=== PATIENT | female | born 1945 | race Caucasian/White ===

== ENCOUNTER → 2017-04-19 | Outpatient (CLI) | payer MEDICARE, OTHER ==
[~2017-04-19] MED LIST: ALLEGRA D 12 HO1 TER PO; BACTRIM DS 8001 TAB PO; BACTROBAN 22GM22 GM TP; CIPRO 500MG TA500 MG PO; CLINDAMYCIN300 MG PO; LORTAB 5/500 501 TAB PO; PERCOCET 325 MG1 TA2 PO; PREMARIN 0.60.625 M1 PO; PREMARIN PO
== END ==
LOC: MC.RAD 13:57
DX: Z12.31 Encounter for screening mammogram for malignant neoplasm of breast (principal)

== ENCOUNTER → 2018-12-02 | Outpatient (CLI) | payer MEDICARE, OTHER | LOC: MC.RAD 10-21 13:40 | DX: Z12.31 Encounter for screening mammogram for malignant neoplasm of breast (principal) ==

== ENCOUNTER → 2019-06-09 | Outpatient (CLI) | payer MEDICARE, OTHER | LOC: ZCOL.LAB 15:19 | DX: Z01.812 Encounter for preprocedural laboratory examination (principal); Z86.14 Personal history of Methicillin resistant Staphylococcus aureus infection ==

== ENCOUNTER → 2019-06-22 | Outpatient (CLI) | payer MEDICARE, OTHER | LOC: COL.RAD 13:00 | DX: M25.512 Pain in left shoulder (principal) | CPT/HCPCS: J3301; Q9967 ==

== ENCOUNTER 2022-03-27 21:01 | Emergency (ER) | payer MEDICARE, OTHER ==
[~2022-03-27] VITALS: Ht 162.6 cm; Wt 77.3 kg
[2022-03-27 21:15] VITALS: TEMP 97.8
[2022-03-27 22:56] VITALS: BP 140/89; PULSE 63
== END 2022-03-27 22:56 | disposition home or self-care (01) ==
LOC: COL.ER 21:01
DX: S06.0X0A Concussion without loss of consciousness, initial encounter (principal); S01.01XA Laceration without foreign body of scalp, initial encounter; W01.198A Fall on same level from slipping, tripping and stumbling with subsequent striking against other object, initial encounter

== ENCOUNTER → 2022-04-05 | Outpatient (CLI) | payer MEDICARE, OTHER ==
[2022-04-05 14:36] VITALS: BP 163/91; PULSE 68; TEMP 99.1
== END ==
LOC: COL.ER 14:19
DX: Z48.02 Encounter for removal of sutures (principal)

== ENCOUNTER 2023-02-12 16:09 | Inpatient (IN) | payer MEDICARE, OTHER ==
[~2023-02-12] VITALS: Ht 162.6 cm; Wt 83.4 kg
[2023-02-12 16:49] LABS: BASO # 0.1 K/mm3 (0.0-0.2); BASO % 1.5 % (0.0-2.0); EOS # 0.2 K/mm3 (0.0-0.7); EOS % 2.2 % (0.0-4.0); GRAN # 4.3 K/mm3 (1.4-6.5); GRAN % 64.5 % (42.2-75.2); HEMATOCRIT 48.1 % (37.0-47.0); HEMOGLOBIN 16.4 g/dl (12.5-16.0); LYMPH # 1.4 K/mm3 (1.2-3.4); LYMPH % 21.4 % (20.0-51.0); MEAN CELL VOLUME 91 fl (80.0-100.0); MEAN CORPUSCULAR HEMOGLOBIN 31 pg (27-31); MEAN CORPUSCULAR HGB CONC 34 g/dl (33.0-37.0); MEAN PLATELET VOLUME 8.8 fl (7.4-10.4); MONO # 0.7 K/mm3 (0.1-0.6); MONO % 10.1 % (1.7-9.3); PLATELET COUNT 366 K/mm3 (130-400); RED BLOOD COUNT 5.28 M/mm3 (4.10-5.30); REDCELL DISTRIBUTION WIDTH-CV 13.3 % (11.5-14.5)
[2023-02-12 16:51] LABS: PROTHROMBIN TIME 11.8 SECONDS (9.7-12.8)
[2023-02-12 16:54] LABS: PARTIAL THROMBOPLASTIN TIME 34.2 SECONDS (26.0-37.0)
[2023-02-12 17:03] LABS: ALANINE AMINOTRANSFERASE 44 U/L (0-55); ALBUMIN 4.5 gm/dL (3.4-4.8); ALKALINE PHOSPHATASE 51 U/L (40-150); ANION GAP 13 mmol/L (7-16); AST,SGOT 62 U/L (5-34); BILIRUBIN,TOTAL 0.8 mg/dL (0.2-1.2); BLOOD UREA NITROGEN 30 mg/dL (10-20); CALCIUM 10.8 mg/dL (8.4-10.2); CARBON DIOXIDE 21 mmol/L (23-31); CHLORIDE 101 mmol/L (98-107); CREATININE, serum 1.36 mg/dL (0.57-1.11); GLUCOSE 96 mg/dL (70-99); POTASSIUM 4.2 mmol/L (3.5-4.5); SODIUM 135 mmol/L (136-145)
[2023-02-12 17:09] LABS: TROPONIN-I < 0.010 ng/mL (0.00-0.033)
[2023-02-12] MEDS ORDERED: NORVASC 5MG5 MG/TAB PO (18:56)
[2023-02-12] MEDS ORDERED: ASPIRIN E.C. 8181 MG PO (18:56)
[2023-02-12] MEDS ORDERED: SINGULAIR 110 MG/TAB PO (18:57)
[2023-02-12] MEDS ORDERED: CALCIUM 600-D 61 TAB PO (18:58)
[2023-02-12] MEDS ORDERED: ZYRTEC 10MG10 MG PO (18:59)
[2023-02-12] MEDS ORDERED: MAG-OX 400400 MG/TAB PO (18:59)
[2023-02-12] MEDS ORDERED: TRICOR 48MG48 MG PO (19:00)
[2023-02-12] MEDS ORDERED: TOPROL XL 50MG50 MG PO (19:00)
[2023-02-12] MEDS ORDERED: PRINIVIL10 MG PO (19:00)
[2023-02-12] MEDS ORDERED: RHINOCORT0.032 MG/1 NS (19:01)
[2023-02-12] MEDS ORDERED: ALLEGRA 180MG180 MG PO (19:01)
[2023-02-12] MEDS ORDERED: TYLENOL 500MG500 MG PO (19:02)
[2023-02-12 19:58] LABS: MAGNESIUM 1.6 mg/dL (1.6-2.6)
[2023-02-12 20:20] LABS: TSH w REFLEX 3.943 uIU/mL (0.350-4.940)
[2023-02-12 20:23] VITALS: BP 134/90; PULSE 88; TEMP 97.9
--- NOTE | 2023-02-12 22:01 | NUR ---
THE PATIENT ARRIVED ALERT AND ORIENTED. THE PATIENT HAD HEPARIN AND CARDIZEM DRIPS GOING. THE PATIENT DID NOT APPEAR TO BE IN ANY DISTRESS. THE PATIENT WAS ORIENTED TO THE ROOM AND BED CONTROLS. CALL LIGHT WITHIN REACH. WILL MONITOR.
[2023-02-13] VITALS (10 sets, daily range): BP systolic 100–145; BP diastolic 54–82; PULSE 64–108; TEMP 97.4–98.2
--- NOTE | 2023-02-13 01:48 | NUR ---
0100 PTS HEART RATE OCCASIONALLY LESS THAN 60. THE PATIENT IS ON A CARDIZEM DRIP. THE RATE WAS DECREASED FROM 10 MG PER HOUR TO 5 MG PER HOUR. THE PTS HEART RATE WAS OCCASIONALLY LESS THAN 60 WITH READINGS SOMETIMES 57-59. THE PATIENT FELL ASLEEP AND HER HEART RATE WAS NOTED IN THE 51 RANGE. THE CARDIZEM DRIP WAS PLACED ON HOLD AT 0145 AND CRISSY GRESHAM NOTIFIED. AT 0153 THE PTS HEART RATE IS 62 WITH THE DRIP ON HOLD. WILL MONITOR.
--- NOTE | 2023-02-13 03:14 | NUR ---
THE PATIENT REMAINS IN A-FIB HR 72. VITAL SIGNS STABLE. CARDIZEM DRIP REMAINS ON HOLD AT THIS TIME. WILL MONITOR.
--- NOTE | 2023-02-13 04:42 | NUR ---
0440 THE PATIENT WAS PLACED BACK ON THE CARDIZEM DRIP AT 5 MG PER HOUR. HR 75-108 NOTED ON THE MONITOR AFIB/FLUTTER. WILL MONITOR.
--- NOTE | 2023-02-13 07:09 | NUR ---
0655 CARDIZEM DRIP PLACED ON HOLD AGAIN. HR 51-78 AND BP MARGINAL. REPORT GIVEN TO JOSEY [facility] TRANSFERRED.
[2023-02-13 09:49] LABS: BASO # 0.1 K/mm3 (0.0-0.2); BASO % 1.3 % (0.0-2.0); EOS # 0.2 K/mm3 (0.0-0.7); EOS % 2.9 % (0.0-4.0); GRAN # 3.9 K/mm3 (1.4-6.5); GRAN % 62.4 % (42.2-75.2); HEMATOCRIT 45.7 % (37.0-47.0); HEMOGLOBIN 15.5 g/dl (12.5-16.0); LYMPH # 1.4 K/mm3 (1.2-3.4); LYMPH % 21.7 % (20.0-51.0); MEAN CELL VOLUME 90 fl (80.0-100.0); MEAN CORPUSCULAR HEMOGLOBIN 31 pg (27-31); MEAN CORPUSCULAR HGB CONC 34 g/dl (33.0-37.0); MEAN PLATELET VOLUME 8.7 fl (7.4-10.4); MONO # 0.7 K/mm3 (0.1-0.6); MONO % 11.4 % (1.7-9.3); PLATELET COUNT 344 K/mm3 (130-400); RED BLOOD COUNT 5.06 M/mm3 (4.10-5.30); REDCELL DISTRIBUTION WIDTH-CV 13.4 % (11.5-14.5)
--- NOTE | 2023-02-13 10:00 | NUR ---
HepXa 0.83. Rate reduced per protocol.
[2023-02-13 10:08] LABS: CALCIUM 10.3 mg/dL (8.4-10.2); CREATININE, serum 1.2 mg/dL (0.57-1.11); POTASSIUM 4.4 mmol/L (3.5-4.5)
--- NOTE | 2023-02-13 10:51 | NUR ---
SW met with pt to complete intake. Pt confirms living in [facility] with spouse Gino Palmer listed as NOK and confirmed phone number as ([phone]). Pt reports DME as: cane for her back, shower chair, and rising toilet. Pt reports moving to [place] in a week and her grandson built a walk in shower with chair. Pt denies stairs at home. Pt reports being otherwise independent. Pt denies oxygen at home. Pt reports PCP as Virgie and primary pharmacy is and secondary is [facility]. Pt denies any challenges with retrieving and/or costs.
[2023-02-14 03:46] VITALS: BP 116/79; PULSE 99; TEMP 98.5
--- NOTE | 2023-02-14 03:58 | NUR ---
NURSING SHIFT ASSESSMENT COMPLETED. THE PATIENT DENIED PAIN OR NEEDS AT THIS TIME. HEPARIN DRIP CONTINUES PER ORDERS. CALL LIGHT AND PERSONAL BELONGINGS WITHIN REACH. WILL MONITOR.
[2023-02-14 07:05] LABS: CALCIUM 9.7 mg/dL (8.4-10.2); CREATININE, serum 1.06 mg/dL (0.57-1.11); POTASSIUM 4.1 mmol/L (3.5-4.5)
[2023-02-14 07:06] LABS: BASO # 0.1 K/mm3 (0.0-0.2); BASO % 1.3 % (0.0-2.0); EOS # 0.2 K/mm3 (0.0-0.7); EOS % 3.4 % (0.0-4.0); GRAN # 3.4 K/mm3 (1.4-6.5); GRAN % 60.1 % (42.2-75.2); HEMOGLOBIN 14.7 g/dl (12.5-16.0); LYMPH # 1.4 K/mm3 (1.2-3.4); LYMPH % 24.2 % (20.0-51.0); MEAN CELL VOLUME 92 fl (80.0-100.0); MEAN CORPUSCULAR HEMOGLOBIN 31 pg (27-31); MEAN CORPUSCULAR HGB CONC 34 g/dl (33.0-37.0); MEAN PLATELET VOLUME 9.2 fl (7.4-10.4); MONO # 0.6 K/mm3 (0.1-0.6); MONO % 10.8 % (1.7-9.3); PLATELET COUNT 294 K/mm3 (130-400); REDCELL DISTRIBUTION WIDTH-CV 13.3 % (11.5-14.5)
[2023-02-14 07:51] VITALS: BP 110/65; PULSE 58; TEMP 98
[2023-02-14 11:41] VITALS: BP 115/72; PULSE 68; TEMP 98.2
--- NOTE | 2023-02-14 13:01 | NUR ---
Spoke to Dr Beckford about increase in heart rate over the last few hours. Currently [id number]. New orders received and initiated.
[2023-02-14 16:00] VITALS: BP 110/83; PULSE 129; TEMP 98
--- NOTE | 2023-02-14 16:09 | NUR ---
Patient has had an uneventful day. Heart rate did increase to 120s-140s. Recieved an extra dose of toprol-HR rate down to 110s. Denies pain/nausea/shortness of breath. Other VS remained stable. Heparin drip remains at 1000 units/hour with therapuetic HepXa. Instructed will be NPO at 0000. Verbalizes understanding. Call light in reach. Will monitor.
[2023-02-14 20:00] VITALS: BP 110/69; PULSE 99; TEMP 97.3
[2023-02-14 20:14] LABS: INR 1.1 (0.8-3.0); PROTHROMBIN TIME 12.9 SECONDS (9.7-12.8)
[2023-02-14 20:36] LABS: CALCIUM 10.2 mg/dL (8.4-10.2); CREATININE, serum 1.19 mg/dL (0.57-1.11); POTASSIUM 4.1 mmol/L (3.5-4.5)
--- NOTE | 2023-02-14 21:17 | NUR ---
HEPARIN STOPPED PER ORDER AND ELIQUIS GIVEN. WILL MONITOR. IVF STARTED PER ORDER.
[2023-02-15] VITALS (8 sets, daily range): BP systolic 95–139; BP diastolic 56–81; PULSE 68–98; TEMP 97.5–98.7
--- NOTE | 2023-02-15 09:16 | NUR ---
NURSING SHIFT ASSESSMENT COMPLETED. THE PATIENT IS ALERT AND ORIENTED AND APPROPRIATE. THE PATIENT DENIED PAIN OR DISCOMFORT. NO S/S OF DISTRESS NOTED. THE PLAN OF CARE WAS DISCUSSED WELL NPO STATUS AT MIDNIGHT. MEDICATIONS REVIEWED. WILL MONITOR. CALL LIGHT WITHIN REACH. BED ALARM ON. PERSONAL BELONGINGS WITHIN REACH.
--- NOTE | 2023-02-15 14:05 | NUR ---
BARBARA charting reviewed, agree with documentation. JOSEY Castillo Clinical Instuctor
[2023-02-15] MEDS ORDERED: MULTAQ400 MG PO (15:17)
[2023-02-15] MEDS ORDERED: ELIQUIS 5MG PO (15:18)
[2023-02-15] MEDS ORDERED: TOPROL XL 25MG25 MG PO (15:18)
[2023-02-15] MEDS ORDERED: CLEOCIN HCL300 MG PO (15:19)
== END 2023-02-15 17:36 | disposition home or self-care (01) | DRG 261 ==
LOC: COL.ER 16:09 → MEDICAL 18:16
PROVIDERS: Family Medicine; Internal Medicine Cardiovascular Disease; Student in an Organized Health Care Education/Training Program; ADMIT Internal Medicine
PROC: 0JH632Z Insertion of Monitoring Device into Chest Subcutaneous Tissue and Fascia, Percutaneous Approach (ICD-10-PCS; principal; 2023-02-12)
PROC: 5A2204Z Restoration of Cardiac Rhythm, Single (ICD-10-PCS; 2023-02-12)
DX: I48.91 Unspecified atrial fibrillation (principal); N17.9 Acute kidney failure, unspecified; I12.9 Hypertensive chronic kidney disease with stage 1 through stage 4 chronic kidney disease, or unspecified chronic kidney disease; N18.9 Chronic kidney disease, unspecified; E78.5 Hyperlipidemia, unspecified; Z88.0 Allergy status to penicillin; Z88.1 Allergy status to other antibiotic agents; J30.2 Other seasonal allergic rhinitis; Z79.899 Other long term (current) drug therapy
CPT/HCPCS: C1764; J1644; J2704; J3475; J7030

== ENCOUNTER 2023-12-13 13:30 | Outpatient (RCR) | payer MEDICARE, OTHER ==
[~2023-12-13 13:30] MED LIST changes: +ALLEGRA 180MG180 MG PO; +ASPIRIN E.C. 8181 MG PO; +CALCIUM 600-D 61 TAB PO; +CLEOCIN HCL300 MG PO; +ELIQUIS 5MG PO; +MAG-OX 400400 MG/TAB PO; +MULTAQ400 MG PO; +NORVASC 5MG5 MG/TAB PO; +PRINIVIL10 MG PO; +RHINOCORT0.032 MG/1 NS; +SINGULAIR 110 MG/TAB PO; +TOPROL XL 25MG25 MG PO; +TOPROL XL 50MG50 MG PO; +TRICOR 48MG48 MG PO; +TYLENOL 500MG500 MG PO; +ZYRTEC 10MG10 MG PO
== END 2023-12-15 | disposition home or self-care (01) ==
LOC: WSST
DX: R09.89 Other specified symptoms and signs involving the circulatory and respiratory systems (principal); C08.9 Malignant neoplasm of major salivary gland, unspecified

== ENCOUNTER 2023-12-21 13:24 | Outpatient (RCR) | payer MEDICARE, OTHER | END 2024-01-13 | disposition home or self-care (01) | LOC: WSST | DX: R09.89 Other specified symptoms and signs involving the circulatory and respiratory systems (principal); C08.9 Malignant neoplasm of major salivary gland, unspecified ==